=== PATIENT | male | born 1965 | race Caucasian/White ===

== ENCOUNTER 2020-07-26 20:40 | Inpatient (IN) ==
[2020-07-26] MEDS ORDERED: KETOROLAC TROMETHAMINE 15 MG/ML VIAL IV STA (21:52)
[2020-07-26] MEDS ORDERED: SODIUM CHLORIDE 0.9% 1000ML 2,000 ML IV ONE (21:52)
[2020-07-26] MEDS ORDERED: dexAMETHasone**PF** 10 MG/ML VIAL IV ONE (21:52)
[2020-07-26] MEDS ORDERED: guaiFENesin 600 MG TABCR PO STA (21:52)
[2020-07-26] MEDS ORDERED: ACETAMINOPHEN 1,000 MG/100 ML VIAL IV STA (21:52)
[2020-07-26] MEDS ORDERED: IPRATROPIUM BROMIDE/ALBUTEROL respimat INH INH STA (21:54)
[2020-07-26 22:47] LABS: Hematocrit (blood only) 40.2 % (42-52); Hemoglobin 14.3 g/dL (14.0-18.0); Lymphocytes # (auto) 0.72 K/uL (1.2-3.4); Lymphocytes % (auto) 8.8 %; Mean Corpuscular Hemoglobin 30.3 pg (25-34); Mean Corpuscular Hgb Conc 35.6 g/dL (32-36); Mean Corpuscular Volume 85.2 fL (80-100); Mean Platelet Volume 11.1 fL (7.4-10.4); Monocytes % (auto) 8.5 %; Neutrophils # (auto) 6.77 K/uL (1.4-6.5); Neutrophils % (auto) 82.7 %; Platelet Count 155 K/uL (130-400); RDW Coefficient of Variation 13.2 % (11.5-14.5); RDW Standard Deviation 41.6 fL (36.4-46.3); Red Blood Count 4.72 M/uL (4.7-6.1); White Blood Count 8.19 K/uL (4.8-10.8)
[2020-07-26 23:02] LABS: D Dimer 770 ug/L FEU (0-500)
[2020-07-26 23:10] LABS: Alanine Aminotransferase 31 U/L (12-78); Albumin Globulin Ratio 0.9 (0.9-2); Albumin Level 2.9 gm/dl (3.4-5.0); Alkaline Phosphatase 86 U/L (45-117); Aspartate Aminotransferase 32 U/L (15-37); BUN Creatinine Ratio 16.4 (10-20); Bilirubin,Total 0.5 mg/dl (0.2-1); Blood Urea Nitrogen 16 mg/dl (7-18); Calcium 8.1 mg/dl (8.5-10.1); Carbon Dioxide 25 mmol/L (21-32); Chloride 107 mmol/L (98-107); Creatinine Clr Calc Pharmacy 93.8 ml/min; Est GFR (African American) 106.9; Est GFR (Non-African American) 92.2; Globulin 3.2 gm/dl (2.5-4.0); Glucose 110 mg/dl (70-99); Lipase 123 U/L (73-393); Phosphorus 2.5 mg/dl (2.5-4.9); Potassium 3.9 mmol/L (3.5-5.1); Sodium 138 mmol/L (136-145); Total Protein 6.1 gm/dl (6.4-8.2); Troponin I < 0.015 ng/ml (0-0.045)
[2020-07-26 23:11] LABS: Bilirubin Direct 0.1 mg/dl (0-0.2)
[2020-07-26] MEDS ORDERED: OPTIRAY 350 500ml IV ONE (23:50)
[2020-07-27 00:44] LABS: Influenza A virus by PCR Negative (Neg); Influenza B virus by PCR Negative (Neg); RSV by PCR Negative (Neg)
[2020-07-27 01:09] LABS: SARS CoV2 RNA(COVID-19) InHosp POSITIVE (Negative)
--- NOTE | 2020-07-27 01:22 | History & Physical Report ---
Date of Service July 27, 2020 Assessment & Plan (1) Pneumonia due to COVID-19 virus: 55yo C male presenting with Covid-19 PNA. Symptoms started on 07/17/20, presently on day 10 with persistent fevers, cough and progressive SOB. Labs are significant for lymphopenia, elevated Ddimer. -Admit to medical -Maintain isolation precautions for Covid-19 -Check Procalcitonin, BNP, CK -Dexamethasone 6mg IV daily -Remdesivir per 5 day protocol -Supplemental O2 -Tylenol, Robitussin as needed -Lovenox 40u BID Present on Admission?: Yes (2) Asthma: Chronic. No wheeze -Albuterol HFA PRN SOB or wheeze F/E/N - Heplock. Electrolytes WNL. Check PO4 and replete as needed. Regular diet as tolerated Ppx - Lovenox 40 BID Code - Full per discusison with patient Dispo - Admit to medical Present on Admission?: Yes History of Present Illness Chief Complaint: SOB, Covid-19 Primary Care Provider: Oralia Mukherjee MD Sy Kelly is a 55yo male presenting with Covid-19 pneumonia. Patient developed symptoms of fever, chills, body aches and weakness on 07/17/20. He tested positive for Covid-19 on 07/18/20. Since then he has been persistently febrile with weakness, body aches, as well as diarrhea. He was seen in the ER yesterday with complaint of worsening dyspnea and weakness and poor appetite. He was discharged home with Prednisone 40mg x 5 days. Patient states that he was using his incentive spirometry earlier today when he developed high fever, muscle aches and rigors. This prompted him to come to the ER. He is still with SOB both at rest and with minimal exertion, dry cough, body aches and weakness. Febrile on arrival, saturation of 92% on room air - presently 93% on 2L NC. Saturations dropped to 86% with ambulation to the restroom. ER Course: Tylenol, Albuterol, Dexamethasone, Guaifenesin, Ketorlac, NSS x 2 L Allergies Allergy/AdvReac Type Severity Reaction Status Date / Time Tetanus Vaccines and Toxoid Allergy Intermediate Hives Verified 07/26/20 22:47 Home Medications Medication Instructions Recorded Confirmed Type Collagen Plus Vitamin C 1 cap PO DAILY 01/30/19 07/26/20 History albuterol sulfate [Ventolin HFA] 2 puffs INH Q6H PRN 01/30/19 07/26/20 History cetirizine [Zyrtec] 10 mg PO DAILY 01/30/19 07/26/20 History nzyqf-cs-8-[id number]-zjk-vqdxjsk-ast 1 cap PO DAILY 01/30/19 07/26/20 History [krill oil] Respiratory Health 600 mg PO DAILY 04/13/20 07/26/20 History prednisone 40 mg PO DAILY 5 Days #10 tab 07/25/20 07/26/20 Rx doxycycline hyclate 100 mg PO BID 07/26/20 07/26/20 History zolpidem 10 mg PO HS PRN 07/26/20 07/26/20 History Past Med/Surg History Medical History (Updated 07/27/20 @ 01:21 by Ayla Morin DO) Asthma USED RESCUE INHALER LAST>1 MONTH AGO Seasonal allergies Surgical History History of tonsillectomy History of tooth extraction Family History Grandmother No problems noted. Grandmother (Paternal) Diabetes Denies family history of Ovarian cancer Prostate cancer Myocardial infarction Breast cancer Colorectal cancer Hypertension Stroke Social History (Updated 12/23/18 @ 16:16 by SANGEETA Beverly) Smoking Status: Never smoker Second Hand Exposure: Yes (IN THE PAST); Hx Alcohol Use: Yes Hx Substance Use: No Preferred Language: Turkish Communication Ability: Effective Toe Former Stitchdowns Required: No Beliefs That Will Affect Care: None marital status: Current Living Situation: Spouse current occupational status: employed current occupation: laborer electroplating Feels Safe at Home: Yes caffeine: Yes (coffee) Dental Care, Regularly: No Physical Activity Frequency: 1-2 Times per Week Seatbelt Use: always Sunscreen Use: Yes Assistive Devices: Glasses Review of Systems Review of Systems: All systems reviewed & are unremarkable except as noted in HPI & below Physical Exam Physical Exam: General: patient resting comfortably, NAD, ill in appearance, AA&O x 4 Skin: warm, dry, intact, no rashes or lesions HEENT: NC/AT, PERRL, EOMI, anicteric sclera, conjunctiva without injection, external ear normal to inspection and nontender, nares patent, moist mucus membranes, dentition intact, no oropharyngeal lesions, neck supple, trachea midline, no LAD, no thyromegaly, no JVD Heart: +S1/S2, regular, no m/r/g Lungs: equal air entry bilaterally, no rales/rhonchi Abd: +BS, soft, NT/ND, no masses/organomegaly/ascites Ext: warm, 2+ pulses in UE/LE bilaterally, no clubbing/cyanosis or edema Neuro: nonfocal, patient AA&O x 4, speech intact, no facial droop, moving all extremities on command with equal strength 5/5 Results & Data Results & Data ([facility]) Vital Signs (Past 12 Hours) Vital Signs Temp Pulse Pulse Resp BP Pulse Ox 07/27/20 00:30 75 17 126/64 93 07/27/20 00:00 70 16 127/66 95 07/26/20 23:44 80 21 134/61 94 07/26/20 23:00 82 21 123/58 L 94 07/26/20 22:40 85 22 95 07/26/20 22:21 81 18 125/65 95 07/26/20 21:50 92 07/26/20 20:57 38.7 C H 84 18 140/60 94 Laboratory Results Lab Results 07/26/20 07/26/20 07/26/20 Range/Units 22:21 22:21 22:21 WBC 8.19 (4.8-10.8) K/uL RBC 4.72 (4.7-6.1) M/uL Hgb 14.3 (14.0-18.0) g/dL Hct 40.2 L (42-52) % MCV 85.2 (80-100) fL MCH 30.3 (25-34) pg MCHC 35.6 (32-36) g/dL RDW Std Deviation 41.6 (36.4-46.3) fL RDW Coeff of Aleksander 13.2 (11.5-14.5) % Plt Count 155 (130-400) K/uL MPV 11.1 H (7.4-10.4) fL Immature Gran % (Auto) 0.0 % Neut % (Auto) 82.7 % Lymph % (Auto) 8.8 % [place] % (Auto) 8.5 % Eos % (Auto) 0.0 % Baso % (Auto) 0.0 % Neut # (Auto) 6.77 H (1.4-6.5) K/uL Lymph # (Auto) 0.72 L (1.2-3.4) K/uL [place] # (Auto) 0.70 H (0.11-0.59) K/uL Eos # (Auto) 0.00 (0-0.5) K/uL Baso # (Auto) 0.00 (0-0.2) K/uL Immature Gran # (Auto) 0.00 (0.00-0.02) K/uL D-Dimer 770 H* (0-500) ug/L FEU Sodium 138 (136-145) mmol/L Potassium 3.9 (3.5-5.1) mmol/L Chloride 107 (98-107) mmol/L Carbon Dioxide 25 (21-32) mmol/L Anion Gap 6.0 (3-11) BUN 16 (7-18) mg/dl Creatinine 0.94 (0.6-1.4) mg/dl Est Cr Clr Drug Dosing 93.8 ml/min Est GFR ( Amer) 106.9 Est GFR (Non-Af Amer) 92.2 BUN/Creatinine Ratio 16.4 (10-20) Glucose 110 H (70-99) mg/dl Calcium 8.1 L (8.5-10.1) mg/dl Phosphorus 2.5 (2.5-4.9) mg/dl Magnesium 2.0 (1.8-2.4) mg/dl Total Bilirubin 0.5 (0.2-1) mg/dl Direct Bilirubin 0.1 (0-0.2) mg/dl AST 32 (15-37) U/L ALT 31 (12-78) U/L Alkaline Phosphatase 86 (45-117) U/L Troponin I < 0.015 (0-0.045) ng/ml Total Protein 6.1 L (6.4-8.2) gm/dl Albumin 2.9 L (3.4-5.0) gm/dl Globulin 3.2 (2.5-4.0) gm/dl Albumin/Globulin Ratio 0.9 (0.9-2) Lipase 123 (73-393) U/L Specimen Hemolysis COVID-19 Eval Order SARS-CoV-2 (PCR) (Negative) Influenza Type A (PCR) (Neg) Influenza Type B (PCR) (Neg) RSV (RT-PCR) (Neg) 07/26/20 07/26/20 Range/Units 23:53 23:53 WBC (4.8-10.8) K/uL RBC (4.7-6.1) M/uL Hgb (14.0-18.0) g/dL Hct (42-52) % MCV (80-100) fL MCH (25-34) pg MCHC (32-36) g/dL RDW Std Deviation (36.4-46.3) fL RDW Coeff of Aleksander (11.5-14.5) % Plt Count (130-400) K/uL MPV (7.4-10.4) fL Immature Gran % (Auto) % Neut % (Auto) % Lymph % (Auto) % [place] % (Auto) % Eos % (Auto) % Baso % (Auto) % Neut # (Auto) (1.4-6.5) K/uL Lymph # (Auto) (1.2-3.4) K/uL [place] # (Auto) (0.11-0.59) K/uL Eos # (Auto) (0-0.5) K/uL Baso # (Auto) (0-0.2) K/uL Immature Gran # (Auto) (0.00-0.02) K/uL D-Dimer (0-500) ug/L FEU Sodium (136-145) mmol/L Potassium (3.5-5.1) mmol/L Chloride (98-107) mmol/L Carbon Dioxide (21-32) mmol/L Anion Gap (3-11) BUN (7-18) mg/dl Creatinine (0.6-1.4) mg/dl Est Cr Clr Drug Dosing ml/min Est GFR ( Amer) Est GFR (Non-Af Amer) BUN/Creatinine Ratio (10-20) Glucose (70-99) mg/dl Calcium (8.5-10.1) mg/dl Phosphorus (2.5-4.9) mg/dl Magnesium (1.8-2.4) mg/dl Total Bilirubin (0.2-1) mg/dl Direct Bilirubin (0-0.2) mg/dl AST (15-37) U/L ALT (12-78) U/L Alkaline Phosphatase (45-117) U/L Troponin I (0-0.045) ng/ml Total Protein (6.4-8.2) gm/dl Albumin (3.4-5.0) gm/dl Globulin (2.5-4.0) gm/dl Albumin/Globulin Ratio (0.9-2) Lipase (73-393) U/L Specimen Hemolysis COVID-19 Eval Order CovFluRsv at [facility] SARS-CoV-2 (PCR) POSITIVE A* (Negative) Influenza Type A (PCR) Negative (Neg) Influenza Type B (PCR) Negative (Neg) RSV (RT-PCR) Negative (Neg) Diagnostic Findings CTA suggesetive of inflammatory/infectious process. No PE Code Status & VTE Plan VTE Prophylaxis Plan VTE Prophylaxis will be ordered: Yes PG Care Time/CCT Total # of Minutes Spent Total Time Spent with Patient: Total time spent is greater than 50% in coordination of care (as documented) at patient's floor/unit and/or counseling patient: Coding Level of Care Code 26991 Initial Inpt Care Lvl 2 Diagnoses Pneumonia due to COVID-19 virus U07.1; J12.82 Asthma J45.909 Asthma severity: unspecified severity Asthma persistence: unspecified Asthma complication type: unspecified (1) Asthma Asthma severity: unspecified severity Asthma persistence: unspecified Asthma complication type: unspecified Qualified Code(s): J45.909 - Unspecified asthma, uncomplicated
[2020-07-27] MEDS ORDERED: AZITHROMYCIN 500 MG in DEXTROSE 5% 250 ML IV STA (02:10)
[2020-07-27] MEDS ORDERED: ONDANSETRON INJ 2 MG/ML 2 ML VIAL IV PRN (02:10)
[2020-07-27] MEDS ORDERED: guaiFENesin SUGAR FREE 100 MG/5 ML UDC PO PRN (02:10)
[2020-07-27] MEDS ORDERED: ACETAMINOPHEN 325 MG TAB PO PRN (02:10)
[2020-07-27] MEDS ORDERED: ALBUTEROL HFA 8 GM INHALER INH PRN (02:10)
--- NOTE | 2020-07-27 02:20 | Emergency Department Note ---
Impression & Plan Pneumonia due to COVID-19 virus, Hypoxia, D-dimer, elevated ED Provider Note NAME: SHANNON SMITH AGE: 55 SEX: M ARRIVES VIA: Walk-In INFORMANT: Patient, ED PROVIDER(S): Christopher Kulkarni MD CHIEF COMPLAINT: Shortness of breath, Covid-19 PLAN: Disposition: Admit MEDICAL DECISION MAKING: The patient is a pleasant 55-year-old gentleman who presents to the emergency department for evaluation of worsening body aches, feverishness cough, congestion and shortness of breath in setting of being diagnosed with COVID-19 with symptoms that evolved over the past week in the setting of his also being symptomatic and confirmed to be Covid positive, seen in the emergency department yesterday found a multifocal pneumonia related to COVID-19 but was considered to be clinically stable for outpatient follow-up. He was treated with steroids due to component of wheezing on exam and provided with inhaler and incentive spirometer. While reporting initial improvement this morning felt abrupt decline this afternoon/evening and now presents for further evaluation. On arrival patient is dyspneic appearing, uncomfortable but no acute distress, febrile to 38.7 with O2 saturation down to 92% on room air with mild dyspnea and so was placed on 2 L nasal cannula with improvement to mid 90s. On exam he appears clinically dry. He has scant intermittent wheeze and is diminished at the bases. EKG without overt acute ischemia. Chest x-ray with persistent bilateral multifocal infiltrates per my preliminary review. WBC, hemoglobin and platelets within normal limits. Chemistry without metabolic acidosis. Electrolytes and LFTs unremarkable. Troponin negative/undetectable. D-dimer was slightly elevated at [address] of the chest was performed and was negative for PE and redemonstrates patchy airspace opacities consistent with COVID-19 pneumonia. Treatment was initiated with IV fluid hydration, dexamethasone, Com bivent, apap. Given the patient's worsening symptoms he is agreeable with plan for admission. Case was discussed with Dr. Morin, [facility] [place], who will evaluate the patient for admission. Triage Nursing notes reviewed and agree them. Prior medical records reviewed Vital Signs: reviewed and remarkable for hypoxia. Differential diagnosis: Reactive airway disease, pneumonia, pneumothorax, COPD, CHF, infections, cardiac ischemia, pulmonary embolism, musculoskeletal, gastrointestinal, as well as other pathologies. ER treatment provided: See below. Diagnostics interpreted by me: ECG: Normal sinus rhythm, 85 bpm, no ectopy, no overt ST elevation or depression, QTC 423, QRS 84. Cardiac Monitoring: An order for continuous cardiac monitoring was placed and demonstrated Normal sinus rhythm, 85 bpm, no ectopy Laboratory studies: See below Imaging studies: CXR: Bilateral multifocal infiltrates per my preliminary review. [facility] Preliminary Findings Only See Final Report For Complete Findings CTA CHEST: No PE No aortic dissection or aneurysm. Patchy areas of airspace disease/groundglass opacities bilaterally. Likely represents infectious/inflammatory process including Covid 19. Small and mildly enlarged mediastinal nodes. Small bilateral hilar nodes. Small subcentimeter liver low-density lesion in the left hepatic lobe. Too small to characterize. Radiologist: Glenys Garcia M.D. Study ready at 23:52 and initial results transmitted at 00:05 Consultation(s): Case was discussed with Dr. Morin, [facility] hospitalist, who will evaluate the patient for admission. HPI: The patient is a pleasant 55-year-old gentleman who presents to the emergency department for evaluation of worsening body aches, feverishness cough, congestion and shortness of breath in setting of being diagnosed with COVID-19 with symptoms that evolved over the past week in the setting of his also being symptomatic and confirmed to be Covid positive, seen in the emergency department yesterday found a multifocal pneumonia related to COVID-19 but was considered to be clinically stable for outpatient follow-up. He was treated with steroids due to component of wheezing on exam and provided with inhaler and incentive spirometer. While reporting initial improvement this morning felt abrupt decline this afternoon/evening and now presents for further evaluation. ROS: See above HPI for pertinent positives & negatives. A total of 10 systems reviewed and were otherwise negative. PAST MEDICAL HISTORY:See Below PAST SURGICAL HISTORY:See Below FAMILY HISTORY:See Below SOCIAL HISTORY:See Below HOME MEDICATIONS:See Below ALLERGIES:See Below VITALS:See Below PHYSICAL EXAMINATION: GENERAL: Awake, alert, uncomfortable-appearing, in no distress HENT: Normocephalic, atraumatic. Oropharynx with dry mucous membranes and otherwise unremarkable. EYES: Normal conjunctiva. Sclera non-icteric. NECK: Supple. No nuchal rigidity. FROM. No JVD. RESPIRATORY: Scant intermittent wheezes and diminished at the bases. Mildly dyspneic without significant work of breathing. CARDIAC: Regular rate, normal rhythm. Extremities warm and well perfused. Pulses equal. ABDOMEN: Soft, non-distended. No tenderness to palpation. No rebound or guarding. No masses. RECTAL: Deferred. MUSCULOSKELETAL: Chest examination reveals no tenderness. The back is symmetri kermit on inspection without obvious abnormality. There is no CVA tenderness to palpation. No joint edema. LOWER EXTREMITIES: Calves are equal size bilaterally and non-tender. No edema. No discoloration. NEURO: Normal sensorium. No sensory or motor deficits noted. SKIN: No rash or jaundice noted. Christopher Kulkarni MD Past Med/Surg History Medical History Asthma USED RESCUE INHALER LAST>1 MONTH AGO Seasonal allergies Surgical History History of tonsillectomy History of tooth extraction Family History Grandmother No problems noted. Grandmother (Paternal) Diabetes Denies family history of Ovarian cancer Prostate cancer Myocardial infarction Breast cancer Colorectal cancer Hypertension Stroke Social History Smoking Status: Never smoker Second Hand Exposure: Yes; Hx Alcohol Use: No Hx Substance Use: No Preferred Language: Japanese Communication Ability: Effective Social Services Required: No Beliefs That Will Affect Care: None marital status: Current Living Situation: Spouse current occupational status: employed current occupation: laborer concrete plant Feels Safe at Home: Yes caffeine: Yes (coffee) Dental Care, Regularly: No Physical Activity Frequency: 1-2 Times per Week Seatbelt Use: always Sunscreen Use: Yes Assistive Devices: Glasses Allergies Allergies Allergy/AdvReac Type Severity Reaction Status Date / Time Tetanus Vaccines and Toxoid Allergy Intermediate Hives Verified 07/26/20 22:47 Home Meds Home Medications Medication Instructions Recorded Confirmed Collagen Plus Vitamin C 1 cap PO DAILY 01/30/19 07/26/20 albuterol sulfate [Ventolin HFA] 2 puffs INH Q6H PRN 01/30/19 07/26/20 cetirizine [Zyrtec] 10 mg PO DAILY 01/30/19 07/26/20 lslkr-fe-3-aaf-ith-qapatao-ast 1 cap PO DAILY 01/30/19 07/26/20 [krill oil] Respiratory Health 600 mg PO DAILY 04/13/20 07/26/20 doxycycline hyclate 100 mg PO BID 07/26/20 07/26/20 zolpidem 10 mg PO HS PRN 07/26/20 07/26/20 Previous Rx's Medication Instructions Recorded prednisone 40 mg PO DAILY 5 Days #10 tab 07/25/20 Results & Data (ED) Vital Signs Vital Signs - 24 hr 07/26/20 20:57 07/26/20 21:01 07/26/20 21:50 Temperature 38.7 C H Temperature Source Oral Pulse Rate 84 Pulse Rate [Apical] Pulse Rate from SpO2 Sensor Pulse Rhythm [Apical] Respiratory Rate 18 Respiratory Effort / Characteristics Short of Breath SOB on Exertion Respiratory Depth Normal Blood Pressure 140/60 Blood Pressure Mean 86 Pulse Oximetry 94 92 Oxygen Delivery Method Room Air Room Air Oxygen Flow Rate Sepsis Recent Fever Within 48 Hours No Sepsis New/Unexplained Change in Mental Status N/A Sepsis Action Taken by Nursing No Action Required Oxygen Flow Rate - Titration Pulse Oximetry Post Tiitration 07/26/20 22:21 07/26/20 22:40 07/26/20 23:00 Temperature Temperature Source Pulse Rate 81 82 Pulse Rate [Apical] 85 Pulse Rate from SpO2 Sensor 82 82 Pulse Rhythm [Apical] Regular Respiratory Rate 18 22 21 Respiratory Effort / Characteristics Non-Labored Spontaneous Respiratory Depth Normal Blood Pressure 125/65 123/58 L Blood Pressure Mean 85 79 Pulse Oximetry 95 95 94 Oxygen Delivery Method Nasal Cannula Nasal Cannula Nasal Cannula Oxygen Flow Rate 2 2 2 Sepsis Recent Fever Within 48 Hours Sepsis New/Unexplained Change in Mental Status Sepsis Action Taken by Nursing Oxygen Flow Rate - Titration 2 Pulse Oximetry Post Tiitration 95 07/26/20 23:44 07/27/20 00:00 07/27/20 00:30 Temperature Temperature Source Pulse Rate 80 70 75 Pulse Rate [Apical] Pulse Rate from SpO2 Sensor 80 70 75 Pulse Rhythm [Apical] Respiratory Rate 21 16 17 Respiratory Effort / Characteristics Respiratory Depth Blood Pressure 134/61 127/66 126/64 Blood Pressure Mean 85 86 84 Pulse Oximetry 94 95 93 Oxygen Delivery Method Room Air Nasal Cannula Nasal Cannula Oxygen Flow Rate 2 2 Sepsis Recent Fever Within 48 Hours Sepsis New/Unexplained Change in Mental Status Sepsis Action Taken by Nursing Oxygen Flow Rate - Titration Pulse Oximetry Post Tiitration 07/27/20 01:00 Temperature Temperature Source Pulse Rate 71 Pulse Rate [Apical] Pulse Rate from SpO2 Sensor 70 Pulse Rhythm [Apical] Respiratory Rate 16 Respiratory Effort / Characteristics Respiratory Depth Blood Pressure 122/69 Blood Pressure Mean 86 Pulse Oximetry 93 Oxygen Delivery Method Nasal Cannula Oxygen Flow Rate 2 Sepsis Recent Fever Within 48 Hours Sepsis New/Unexplained Change in Mental Status Sepsis Action Taken by Nursing Oxygen Flow Rate - Titration Pulse Oximetry Post Tiitration Laboratory Data Attestation: I reviewed the patient's lab results. Result diagrams: 07/26/20 22:07/26/20 22: Lab Results 07/26/20 07/26/20 07/26/20 Range/Units : 22: 22: WBC 8.19 (4.8-10.8) K/uL RBC 4.72 (4.7-6.1) M/uL Hgb 14.3 (14.0-18.0) g/dL Hct 40.2 L (42-52) % MCV 85.2 (80-100) fL MCH 30.3 (25-34) pg MCHC 35.6 (32-36) g/dL RDW Std Deviation 41.6 (36.4-46.3) fL RDW Coeff of Aleksander 13.2 (11.5-14.5) % Plt Count 155 (130-400) K/uL MPV 11.1 H (7.4-10.4) fL Immature Gran % (Auto) 0.0 % Neut % (Auto) 82.7 % Lymph % (Auto) 8.8 % [place] % (Auto) 8.5 % Eos % (Auto) 0.0 % Baso % (Auto) 0.0 % Neut # (Auto) 6.77 H (1.4-6.5) K/uL Lymph # (Auto) 0.72 L (1.2-3.4) K/uL [place] # (Auto) 0.70 H (0.11-0.59) K/uL Eos # (Auto) 0.00 (0-0.5) K/uL Baso # (Auto) 0.00 (0-0.2) K/uL Immature Gran # (Auto) 0.00 (0.00-0.02) K/uL D-Dimer 770 H* (0-500) ug/L FEU Sodium 138 (136-145) mmol/L Potassium 3.9 (3.5-5.1) mmol/L Chloride 107 (98-107) mmol/L Carbon Dioxide 25 (21-32) mmol/L Anion Gap 6.0 (3-11) BUN 16 (7-18) mg/dl Creatinine 0.94 (0.6-1.4) mg/dl Est Cr Clr Drug Dosing 93.8 ml/min Est GFR ( Amer) 106.9 Est GFR (Non-Af Amer) 92.2 BUN/Creatinine Ratio 16.4 (10-20) Glucose 110 H (70-99) mg/dl Calcium 8.1 L (8.5-10.1) mg/dl Phosphorus 2.5 (2.5-4.9) mg/dl Magnesium 2.0 (1.8-2.4) mg/dl Total Bilirubin 0.5 (0.2-1) mg/dl Direct Bilirubin 0.1 (0-0.2) mg/dl AST 32 (15-37) U/L ALT 31 (12-78) U/L Alkaline Phosphatase 86 (45-117) U/L Total Creatine Kinase 235 (39-308) U/L Troponin I < 0.015 (0-0.045) ng/ml NT-Pro-B Natriuret Pep 353 (0-900) pg/ml Total Protein 6.1 L (6.4-8.2) gm/dl Albumin 2.9 L (3.4-5.0) gm/dl Globulin 3.2 (2.5-4.0) gm/dl Albumin/Globulin Ratio 0.9 (0.9-2) Lipase 123 (73-393) U/L Specimen Hemolysis COVID-19 Eval Order SARS-CoV-2 (PCR) (Negative) Influenza Type A (PCR) (Neg) Influenza Type B (PCR) (Neg) RSV (RT-PCR) (Neg) 07/26/20 07/26/20 Range/Units 23:53 23:53 WBC (4.8-10.8) K/uL RBC (4.7-6.1) M/uL Hgb (14.0-18.0) g/dL Hct (42-52) % MCV (80-100) fL MCH (25-34) pg MCHC (32-36) g/dL RDW Std Deviation (36.4-46.3) fL RDW Coeff of Aleksander (11.5-14.5) % Plt Count (130-400) K/uL MPV (7.4-10.4) fL Immature Gran % (Auto) % Neut % (Auto) % Lymph % (Auto) % [place] % (Auto) % Eos % (Auto) % Baso % (Auto) % Neut # (Auto) (1.4-6.5) K/uL Lymph # (Auto) (1.2-3.4) K/uL [place] # (Auto) (0.11-0.59) K/uL Eos # (Auto) (0-0.5) K/uL Baso # (Auto) (0-0.2) K/uL Immature Gran # (Auto) (0.00-0.02) K/uL D-Dimer (0-500) ug/L FEU Sodium (136-145) mmol/L Potassium (3.5-5.1) mmol/L Chloride (98-107) mmol/L Carbon Dioxide (21-32) mmol/L Anion Gap (3-11) BUN (7-18) mg/dl Creatinine (0.6-1.4) mg/dl Est Cr Clr Drug Dosing ml/min Est GFR ( Amer) Est GFR (Non-Af Amer) BUN/Creatinine Ratio (10-20) Glucose (70-99) mg/dl Calcium (8.5-10.1) mg/dl Phosphorus (2.5-4.9) mg/dl Magnesium (1.8-2.4) mg/dl Total Bilirubin (0.2-1) mg/dl Direct Bilirubin (0-0.2) mg/dl AST (15-37) U/L ALT (12-78) U/L Alkaline Phosphatase (45-117) U/L Total Creatine Kinase (39-308) U/L Troponin I (0-0.045) ng/ml NT-Pro-B Natriuret Pep (0-900) pg/ml Total Protein (6.4-8.2) gm/dl Albumin (3.4-5.0) gm/dl Globulin (2.5-4.0) gm/dl Albumin/Globulin Ratio (0.9-2) Lipase (73-393) U/L Specimen Hemolysis COVID-19 Eval Order CovFluRsv at [facility] SARS-CoV-2 (PCR) POSITIVE A* (Negative) Influenza Type A (PCR) Negative (Neg) Influenza Type B (PCR) Negative (Neg) RSV (RT-PCR) Negative (Neg) Administered Medications Discontinued Medications Albuterol (Ipratropium [place]/Albuterol Respimat Inh) 2 puffs INH NOW STA Stop: 07/26/20 21:55 Last Admin: 07/26/20 22:29 Dose: 2 puffs Documented by: [id number] Dexamethasone Sodium Phosphate (DexamethasonePf 10 Mg/Ml Vial) 10 mg IV NOW ONE Stop: 07/26/20 21:53 Last Admin: 07/26/20 22:29 Dose: 10 mg Documented by: [id number] Guaifenesin (Guaifenesin 600 Mg Tabcr) 600 mg PO NOW STA Stop: 07/26/20 21:53 Last Admin: 07/26/20 22:29 Dose: 600 mg Documented by: [id number] Acetaminophen (Ofirmev) 1,000 mg in 100 mls @ 400 mls/hr IV NOW STA Stop: 07/26/20 22:06 Last Infusion: 07/26/20 22:53 Dose: 0 mls/hr Documented by: [id number] Admin: 07/26/20 22:28 Dose: 400 mls/hr Documented by: [id number] Sodium Chloride (Nss 1000ml) 2,000 mls @ 999 mls/hr IV .Q2H1M ONE Stop: 07/26/20 23:52 Last Infusion: 07/27/20 00:28 Dose: 0 mls/hr Documented by: [id number] Admin: 07/26/20 22:27 Dose: 999 mls/hr Documented by: [id number] Remdesivir 200 mg/ Sodium (Chloride) 250 mls @ 125 mls/hr IV ONE STA; Protocol Stop: 07/27/20 04:25 Last Admin: 07/27/20 03:52 Dose: 125 mls/hr Documented by: [id number] Ioversol (Optiray 350 500ml) 125 ml IV ONCE ONE Stop: 07/26/20 23:51 Last Admin: 07/26/20 23:50 Dose: 94 ml Documented by: [id number] Ketorolac Tromethamine (Ketorolac Tromethamine 15 Mg/Ml Vial) 15 mg IV NOW STA Stop: 07/26/20 21:53 Last Admin: 07/26/20 22:29 Dose: 15 mg Documented by: [id number] Discharge Plan Visit Data Chief Complaint: Cardiac Assessment Stated Complaint: CHEST PRESSURE/TIGHTNESS, Hx OF COVID ED Provider: Christopher Kulkarni Discharge Problem: Pneumonia due to COVID-19 virus, Hypoxia, D-dimer, elevated Patient Disposition: Admitted As Inpatient Discharge Instructions Interventions: ED Discharge Assessment Last Done: 07/27/20 01:41
[2020-07-27] MEDS ORDERED: REMDESIVIR 200 MG in SODIUM CHLORIDE 0.9% 210 ML IV STA (02:26)
[2020-07-27 02:50] LABS: Creatine Kinase 235 U/L (39-308); NT Pro B Type Natriuretic Pept 353 pg/ml (0-900)
[2020-07-27] MEDS: SODIUM CHLORIDE 0.9% 10ML FLUSH IV SCH ×2 (05:59→22:02)
--- NOTE | 2020-07-27 07:27 | XRay Report ---
XR chest 1V portable CLINICAL HISTORY: Chest Pain COMPARISON STUDY: Chest radiograph July 25, 2020. FINDINGS: Lung volumes are normal. There is no pneumothorax or pleural effusion. There has been progr ession of moderate multifocal bilateral airspace opacities since exam of July 25, 2020. Cardiac size is normal. Mediastinal contours are normal. There is bilateral hilar prominence which may be due to lymphadenopathy. IMPRESSION: Progression of moderate bilateral airspace opacities consistent with viral pneumonia. ACT 112: Negative or not required by law. Electronically signed by: Raghavendra Brown M.D. 07/27/2020 7:25 AM
--- NOTE | 2020-07-27 07:36 | CT Scan Report ---
CT ANGIOGRAM OF THE CHEST CLINICAL HISTORY: Pleuritic chest pain. Hypoxia. Covid. COMPARISON STUDY: Chest x-ray dated 07/26/2020. TECHNIQUE: Following the IV administration of 94 cc of Optiray 350, CT angiogram of the chest was per formed from the upper abdomen to the thoracic inlet utilizing the pulmonary embolus protocol. Images are reviewed in the axial, sagittal, and coronal planes. 3-D MIPS images are created and assessed. IV contrast was administered without complication. A dose lowering technique was utilized adhering to the principles of ALARA. CT DOSE: 437.45 mGy.cm FINDINGS: Thyroid: Imaged portions of the thyroid gland are normal in size and attenuation. Thoracic aorta: The thoracic aorta is normal in caliber and demonstrates standard 3-vessel arch anato my. No dissection is seen. Pulmonary vasculature: The pulmonary trunk is normal in caliber. There are no filling defects identif ied in main, lobar, or segmental pulmonary branches to suggest pulmonary embolus. Heart: The heart is normal in size and without pericardial effusion. Lungs and pleural spaces: There is multifocal airspace consolidation seen throughout both lungs. Trac e pleural effusions are noted. The trachea and central airways are clear. Mediastinum: There are numerous enlarged mediastinal lymph nodes. An AP window node measures 1.6 cm i n short axis. Prevascular nodes measure up to 9 mm in short axis. [place]za: There are enlarged bilateral hilar lymph nodes measuring up to 1.2 cm in short axis. Axillae: There is no axillary lymphadenopathy. Upper abdomen: Partially visualized upper abdominal viscera is within normal limits. Skeletal structures: No lytic or blastic bony lesions are seen. IMPRESSION: 1. There is no evidence of pulmonary embolus in the main, lobar, or segmental pulmonary arteries. 2. Multifocal airspace consolidation is consistent with the reported history of a viral pneumonia. Ra diographic follow-up to resolution is recommended. 3. Trace pleural effusions. 4. Mildly enlarged mediastinal and hilar lymph nodes are likely reactive. ACT 112: Negative or not required by law. Electronically signed by: Oj Way M.D. 07/27/2020 7:34 AM
[2020-07-27] MEDS: ENOXAPARIN INJ 40 MG/0.4 ML SYR SQ SCH ×2 (08:42→20:49)
[2020-07-27] MEDS: dexAMETHasone 6 MG in SYRINGE 0 ML IV SCH (08:42)
[2020-07-27] MEDS: CETIRIZINE HCL 10 MG TABLET PO SCH (08:43)
[2020-07-27] MEDS: cefTRIAXone SODIUM 2,000 MG in DEXTROSE 5% 50 ML IV SCH (09:53)
--- NOTE | 2020-07-27 14:08 | Hospitalist Progress Note ---
Date of Service July 27, 2020 Assessment & Plan (1) Pneumonia due to COVID-19 virus: Severe disease. With resulting acute hypoxic resp failure. Day #2 of 10 of IV decadron 6mg daily. Dose #2 of 5 of remdesivir. Defer on convalescent plasma as he is about 10 days into his illness. Proning demonstrated and encouraged; handout given. Flutter valve, incentive. Mucinex. Albuterol prn. CTA w/o PE at admission. (2) Asthma: No significant wheezing/bronchospasm on exam today. Cont albuterol prn. (3) Acute respiratory failure with hypoxia: 2nd COVID-19 pneumonia. NC O2 support. See above. (4) D-dimer, elevated: 2nd COVID-19. No PE on CTA chest yesterday. (5) DVT prophylaxis: Due to higher risk of VTE will use lovenox 40mg BID. Also add low-dose asa 81mg daily as recent studies show decrease in COVID complications by using such. updated extensively by phone. total time today between bedside visit and updating - 35 min Admission and Anticipated Discharge Date Admission Date: July 27, 2020 Subjective patient very fatigued, ongoing dry cough, ongoing dyspnea with minimal exertion. just simply feels poorly. appetite poor. fever and chills last night. no loss of taste/smell. ill with COVID but not as severely as him. denies chest pain although he has some occasional chest tightness. has not proned yet. Review of Systems Constitutional: + fever, + chills, + fatigue, + malaise, + weakness and + anorexia; no body aches Ear, Nose, Mouth, Throat: no nasal congestion Respiratory: + cough, + dyspnea and + dyspnea on exertion; no wheezing Cardiovascular: no chest pain and no orthopnea Gastrointestinal: + diarrhea/loose stools; no abdominal pain Physical Exam Constitutional: + ill appearing; no acute distress and no altered mental status ENMT: external ear and nose normal, oropharynx normal Respiratory: no respiratory distress Auscultation: + crackles (extensive - b/l ); no wheezes Cardiovascular: Rate/Rhythm: regular rate and regular rhythm Heart Sounds: normal S1 and normal S2; no murmur Vessels: posterior tibial pulses present and dorsalis pedis pulses present; no JVD Extremities: no edema Gastrointestinal (Abdomen): normal bowel sounds, soft, nontender, no hepatosp lenomegaly Skin: no rashes, warm and dry Psychiatric: Orientation: alert and oriented x 3 Results & Data Results & Data ([facility]) Vital Signs (Past 12 Hours) Vital Signs Temp Pulse Resp BP Pulse Ox 07/27/20 07:59 36.8 C 71 18 120/72 93 Laboratory Results Laboratory Results - last 24 hr 07/26/20 07/26/20 07/26/20 22:21 22:21 22:21 WBC 8.19 RBC 4.72 Hgb 14.3 Hct 40.2 L MCV 85.2 MCH 30.3 MCHC 35.6 RDW Std Deviation 41.6 RDW Coeff of Aleksander 13.2 Plt Count 155 MPV 11.1 H Immature Gran % (Auto) 0.0 Neut % (Auto) 82.7 Lymph % (Auto) 8.8 [place] % (Auto) 8.5 Eos % (Auto) 0.0 Baso % (Auto) 0.0 Neut # (Auto) 6.77 H Lymph # (Auto) 0.72 L [place] # (Auto) 0.70 H Eos # (Auto) 0.00 Baso # (Auto) 0.00 Immature Gran # (Auto) 0.00 D-Dimer 770 H* Sodium 138 Potassium 3.9 Chloride 107 Carbon Dioxide 25 Anion Gap 6.0 BUN 16 Creatinine 0.94 Est Cr Clr Drug Dosing 93.8 Est GFR ( Amer) 106.9 Est GFR (Non-Af Amer) 92.2 BUN/Creatinine Ratio 16.4 Glucose 110 H Calcium 8.1 L Phosphorus 2.5 Magnesium 2.0 Total Bilirubin 0.5 Direct Bilirubin 0.1 AST 32 ALT 31 Alkaline Phosphatase 86 Total Creatine Kinase 235 Troponin I < 0.015 NT-Pro-B Natriuret Pep 353 Total Protein 6.1 L Albumin 2.9 L Globulin 3.2 Albumin/Globulin Ratio 0.9 Lipase 123 Procalcitonin Specimen Hemolysis COVID-19 Eval Order SARS-CoV-2 (PCR) Influenza Type A (PCR) Influenza Type B (PCR) RSV (RT-PCR) 07/26/20 07/26/20 07/27/20 23:53 23:53 06:49 WBC RBC Hgb Hct MCV MCH MCHC RDW Std Deviation RDW Coeff of Aleksander Plt Count MPV Immature Gran % (Auto) Neut % (Auto) Lymph % (Auto) [place] % (Auto) Eos % (Auto) Baso % (Auto) Neut # (Auto) Lymph # (Auto) [place] # (Auto) Eos # (Auto) Baso # (Auto) Immature Gran # (Auto) D-Dimer Sodium Potassium Chloride Carbon Dioxide Anion Gap BUN Creatinine Est Cr Clr Drug Dosing Est GFR ( Amer) Est GFR (Non-Af Amer) BUN/Creatinine Ratio Glucose Calcium Phosphorus Magnesium Total Bilirubin Direct Bilirubin AST ALT Alkaline Phosphatase Total Creatine Kinase Troponin I NT-Pro-B Natriuret Pep Total Protein Albumin Globulin Albumin/Globulin Ratio Lipase Procalcitonin 0.44 Specimen Hemolysis COVID-19 Eval Order CovFluRsv at [facility] SARS-CoV-2 (PCR) POSITIVE A* Influenza Type A (PCR) Negative Influenza Type B (PCR) Negative RSV (RT-PCR) Negative PG Care Time/CCT Total # of Minutes Spent Total Time Spent with Patient: Total time spent is greater than 50% in coordination of care (as documented) at patient's floor/unit and/or counseling patient: Coding Level of Care Code 55097 Subseq Hosp Care Lvl 3 Diagnoses Pneumonia due to COVID-19 virus U07.1; J12.82 Asthma J45.909 Asthma complication type: unspecified Asthma persistence: unspecified Asthma severity: unspecified severity Acute respiratory failure with hypoxia J96.01 D-dimer, elevated R79.89 DVT prophylaxis Z29.9 (1) Asthma Asthma complication type: unspecified Asthma persistence: unspecified Asthma severity: unspecified severity Qualified Code(s): J45.909 - Unspecified asthma, uncomplicated
--- NOTE | 2020-07-27 14:34 | Electrocardiogram Report ---
Test Reason : Blood Pressure : / mmHG Vent. Rate : 085 BPM Atrial Rate : 085 BPM P-R Int : 138 ms QRS Dur : 084 ms QT Int : 364 ms P-R-T Axes : 039 -15 -12 degrees QTc Int : 433 ms Normal sinus rhythm Normal ECG When compared with ECG of 25-JUL-2020 13:00, No significant change was found Confirmed by Colt Crowe ([id number]) on 07/27/2020 2:33:43 PM Referred By: REFERRED SELF Confirmed By:Liuns Crowe
[2020-07-27] MEDS: ASPIRIN 81 MG ECTAB PO SCH (17:58)
[2020-07-27] MEDS: REMDESIVIR 100 MG in SODIUM CHLORIDE 0.9% 230 ML IV SCH (20:49)
[2020-07-28 05:31] LABS: Hematocrit (blood only) 42.7 % (42-52); Hemoglobin 14.6 g/dL (14.0-18.0); Mean Corpuscular Hemoglobin 29.7 pg (25-34); Mean Corpuscular Hgb Conc 34.2 g/dL (32-36); Mean Platelet Volume 10.3 fL (7.4-10.4); Platelet Count 157 K/uL (130-400); RDW Coefficient of Variation 13.4 % (11.5-14.5); RDW Standard Deviation 42.7 fL (36.4-46.3); Red Blood Count 4.91 M/uL (4.7-6.1); White Blood Count 11.01 K/uL (4.8-10.8)
[2020-07-28 05:48] LABS: BUN Creatinine Ratio 15.4 (10-20); Calcium 7.8 mg/dl (8.5-10.1); Creatinine Clr Calc Pharmacy 96.9 ml/min; Est GFR (African American) 111.1; Est GFR (Non-African American) 95.9; Potassium 3.9 mmol/L (3.5-5.1)
[2020-07-28 05:52] LABS: Basophils # (auto) 0.02 K/uL (0-0.2); Basophils % (auto) 0.2 %; Immature Granulocytes # (auto) 0.03 K/uL (0.00-0.02); Immature Granulocytes % (auto) 0.3 %; Lymphocytes # (auto) 0.96 K/uL (1.2-3.4); Lymphocytes % (auto) 8.7 %; Monocytes # (auto) 0.84 K/uL (0.11-0.59); Monocytes % (auto) 7.6 %; Neutrophils # (auto) 9.16 K/uL (1.4-6.5); Neutrophils % (auto) 83.2 %
[2020-07-28] MEDS: cefTRIAXone SODIUM 2,000 MG in DEXTROSE 5% 50 ML IV SCH (06:22)
[2020-07-28] MEDS: AZITHROMYCIN 250 MG in DEXTROSE 5% 250 ML IV SCH (08:22)
[2020-07-28] MEDS: ENOXAPARIN INJ 40 MG/0.4 ML SYR SQ SCH ×2 (08:22→19:53)
[2020-07-28] MEDS: CETIRIZINE HCL 10 MG TABLET PO SCH (08:22)
[2020-07-28] MEDS: dexAMETHasone 6 MG in SYRINGE 0 ML IV SCH (08:22)
[2020-07-28] MEDS: ASPIRIN 81 MG ECTAB PO SCH (08:23)
[2020-07-28] MEDS ORDERED: FAMOTIDINE 20 MG TAB PO ONE (10:00)
[2020-07-28] MEDS ORDERED: guaiFENesin 600 MG TABCR PO ONE (10:00)
[2020-07-28] MEDS: SODIUM CHLORIDE 0.9% 10ML FLUSH IV SCH (19:54)
[2020-07-28] MEDS: REMDESIVIR 100 MG in SODIUM CHLORIDE 0.9% 230 ML IV SCH (19:54)
[2020-07-28] MEDS: guaiFENesin 600 MG TABCR PO SCH (19:55)
[2020-07-28] MEDS: FAMOTIDINE 20 MG TAB PO SCH (19:55)
[2020-07-28] MEDS ORDERED: PRAMIPEXOLE DIHYDROCHLO 0.25 MG TAB PO SCH (21:00)
--- NOTE | 2020-07-28 22:27 | Hospitalist Progress Note ---
Date of Service July 28, 2020 Assessment & Plan (1) Pneumonia due to COVID-19 virus: Severe disease. With resulting acute hypoxic resp failure. Modestly improved today. Day #3 of 10 of IV decadron 6mg daily. Dose #3 of 5 of remdesivir. Convalescent plasma deffered (he was about 10 days into his illness at time of admission). Continue Proning. Continue Flutter valve, incentive. Mucinex. Albuterol prn. CTA w/o PE at admission. (2) Asthma: Again no significant wheezing/bronchospasm on exam today. Cont albuterol prn. (3) Acute respiratory failure with hypoxia: 2nd COVID-19 pneumonia. NC O2 support. See above. (4) D-dimer, elevated: 2nd COVID-19. No PE on CTA chest at admission. Recheck in 2-3 days - sooner if clinical worsening. (5) DVT prophylaxis: Due to higher risk of VTE will use lovenox 40mg BID. Also continue low-dose asa 81mg daily as recent studies show decrease in COVID complications by using such. updated extensively by phone yesterday and today. Admission and Anticipated Discharge Date Admission Date: July 27, 2020 Subjective patient on general scale feeling better today appetite improved being diligent about proning and he notices a big difference can take deeper breaths still coughing but not any worse than previous no fevers/chills using incentive/flutter Review of Systems Constitutional: + fatigue and + weakness; no fever and no chills Ear, Nose, Mouth, Throat: no nasal congestion and no sore throat still no loss of taste or smell Respiratory: + cough and + dyspnea on exertion; no hemoptysis, no sputum production and no wheezing Cardiovascular: no chest pain and no dyspnea at rest Gastrointestinal: no abdominal pain, no nausea and no vomiting Physical Exam Constitutional: no acute distress and no altered mental status looks better today ENMT: external ear and nose normal, oropharynx normal Respiratory: no respiratory distress Auscultation: + diminished lung sounds (bases) and + crackles (b/l bases - improved today; also better airation ); no wheezes Cardiovascular: Rate/Rhythm: regular rate and regular rhythm Heart Sounds: normal S1 and normal S2; no murmur Vessels: posterior tibial pulses present and dorsalis pedis pulses present; no JVD Extremities: no edema Gastrointestinal (Abdomen): normal bowel sounds, soft, nontender, no hepatosplenomegaly Skin: no rashes, warm and dry Psychiatric: Orientation: alert and oriented x 3 Results & Data Results & Data ([facility]) Vital Signs (Past 12 Hours) Vital Signs Temp Pulse Resp BP Pulse Ox 07/28/20 20:57 36.7 C 71 16 118/70 94 07/28/20 15:47 36.8 C 75 17 123/72 93 Laboratory Results Laboratory Results - last 24 hr 07/28/20 07/28/20 05:22 05:22 WBC 11.01 H RBC 4.91 Hgb 14.6 Hct 42.7 MCV 87.0 MCH 29.7 MCHC 34.2 RDW Std Deviation 42.7 RDW Coeff of Aleksander 13.4 Plt Count 157 MPV 10.3 Immature Gran % (Auto) 0.3 Neut % (Auto) 83.2 Lymph % (Auto) 8.7 [place] % (Auto) 7.6 Eos % (Auto) 0.0 Baso % (Auto) 0.2 Neut # (Auto) 9.16 H Lymph # (Auto) 0.96 L [place] # (Auto) 0.84 H Eos # (Auto) 0.00 Baso # (Auto) 0.02 Immature Gran # (Auto) 0.03 H Sodium 141 Potassium 3.9 Chloride 109 H Carbon Dioxide 28 Anion Gap 4.0 BUN 14 Creatinine 0.91 Est Cr Clr Drug Dosing 96.9 Est GFR ( Amer) 111.1 Est GFR (Non-Af Amer) 95.9 BUN/Creatinine Ratio 15.4 Glucose 116 H Calcium 7.8 L AST 28 ALT 33 PG Care Time/CCT Total # of Minutes Spent Total Time Spent with Patient: Total time spent is greater than 50% in coordination of care (as documented) at patient's floor/unit and/or counseling patient: Coding Level of Care Code 70237 Subseq Hosp Care Lvl 2 Diagnoses Pneumonia due to COVID-19 virus U07.1; J12.82 Asthma J45.909 Asthma complication type: unspecified Asthma persistence: unspecified Asthma severity: unspecified severity Acute respiratory failure with hypoxia J96.01 D-dimer, elevated R79.89 DVT prophylaxis Z29.9 (1) Asthma Asthma complication type: unspecified Asthma persistence: unspecified Asthma severity: unspecified severity Qualified Code(s): J45.909 - Unspecified asthma, uncomplicated
[2020-07-29] MEDS: cefTRIAXone SODIUM 2,000 MG in DEXTROSE 5% 50 ML IV SCH (05:13)
[2020-07-29] MEDS: ALBUTEROL HFA 8 GM INHALER INH SCH ×4 (07:19→19:24)
[2020-07-29] MEDS: ENOXAPARIN INJ 40 MG/0.4 ML SYR SQ SCH ×2 (07:29→20:30)
[2020-07-29] MEDS: CETIRIZINE HCL 10 MG TABLET PO SCH (07:32)
[2020-07-29] MEDS: guaiFENesin 600 MG TABCR PO SCH ×2 (07:32→20:31)
[2020-07-29] MEDS: FAMOTIDINE 20 MG TAB PO SCH ×2 (07:32→20:31)
[2020-07-29] MEDS: ASPIRIN 81 MG ECTAB PO SCH (07:32)
[2020-07-29] MEDS: dexAMETHasone 6 MG in SYRINGE 0 ML IV SCH ×2 (07:32→20:32)
[2020-07-29] MEDS: AZITHROMYCIN 250 MG in DEXTROSE 5% 250 ML IV SCH (09:12)
[2020-07-29 09:20] LABS: BUN Creatinine Ratio 20.6 (10-20); Calcium 8.5 mg/dl (8.5-10.1); Creatinine Clr Calc Pharmacy 101.4 ml/min; Est GFR (African American) 114.2; Est GFR (Non-African American) 98.5; Potassium 3.7 mmol/L (3.5-5.1)
--- NOTE | 2020-07-29 15:55 | XRay Report ---
XR chest 1V portable HISTORY: COVID-19, worsening hypoxia COMPARISON: Chest 07/26/2020. FINDINGS: No pneumothorax. No pleural effusions. The heart is normal in size. No evidence for pulmona ry edema. Hazy bilateral mid to lower lung zone airspace opacities are again noted. These are similar to the prior study and are consistent with a viral pneumonia. IMPRESSION: No significant change in the hazy bilateral airspace opacities likely representing a viral pneumonia. ACT 112: Negative or not required by law. Electronically signed by: Hima Navarrete M.D. 07/29/2020 3:54 PM
[2020-07-29] MEDS: DICLOFENAC SOD 1% GEL 100 GM TUBE EXT SCH ×2 (18:00→20:33)
[2020-07-29] MEDS ORDERED: MELATONIN 3 MG TAB PO PRN (19:06)
[2020-07-29] MEDS: PRAMIPEXOLE DIHYDROCHLO 0.5 MG TAB PO SCH (20:31)
[2020-07-29] MEDS: REMDESIVIR 100 MG in SODIUM CHLORIDE 0.9% 230 ML IV SCH (20:32)
[2020-07-29] MEDS: SODIUM CHLORIDE 0.9% 10ML FLUSH IV SCH (21:32)
--- NOTE | 2020-07-29 22:54 | Hospitalist Progress Note ---
Date of Service July 29, 2020 Assessment & Plan (1) Pneumonia due to COVID-19 virus: Severe disease. With resulting acute hypoxic resp failure. Slight worsening in O2 requirement, but on exam he actually has improved airation. CXR today with unchanged infiltrates. Day #4 of 10 of IV decadron. Will increase to 6mg BID due to wheezing (bronchospasm from asthma). Dose #4 of 5 of remdesivir. Convalescent plasma deffered (he was about 10 days into his illness at time of admission). AST/ALT wnl. Continue Proning. Encouraged him to do this as much as possible. Continue Flutter valve; continue incentive. Mucinex. Albuterol qid scheduled. CTA w/o PE at admission. (2) Asthma: Mild wheezing today. In light of worsening O2 requirements will increase decadron to BID dosing. Cont albuterol qid scheduled. Pulmonary toilet. (3) Acute respiratory failure with hypoxia: 2nd COVID-19 pneumonia. 2nd to asthma w/ flare. NC O2 support. See above. (4) D-dimer, elevated: 2nd COVID-19. No PE on CTA chest at admission. Recheck tomorrow am. (5) Restless legs: Increase mirapex to 0.5mg at HS. Consider Fe studies, but ferritin likely to be high from COVID. Defer for now. (6) Insomnia: Multifactorial. Start melatonin 3mg HS. (7) DVT prophylaxis: Due to higher risk of VTE will use lovenox 40mg BID. Also continue low-dose asa 81mg daily as recent studies show decrease in COVID complications by using such. updated extensively by phone yesterday and today. questions answered. low threshold to move to telemetry if any worsening respiratory status. Admission and Anticipated Discharge Date Admission Date: July 27, 2020 Subjective patient states that again he slept very poorly the mirapex helped marginally with restless legs he remains anxious this am upon awakening he was quite dyspneic appetite today very good scant chest discomfort ([place]) with coughing using incentive using flutter proning as much as possible staff report that when he is supine his O2 sats drift to the 80s this prompted O2 via NC being increased to 5 L/min Review of Systems Constitutional: + fatigue and + weakness; no fever and no chills Ear, Nose, Mouth, Throat: no nasal congestion and no sore throat no loss of taste or smell Respiratory: + cough, + dyspnea on exertion, + sputum production (mild - clear) and + wheezing Cardiovascular: as per Subjective / HPI; no edema Gastrointestinal: + diarrhea/loose stools; no abdominal pain, no nausea and no vomiting Physical Exam Constitutional: no acute distress and no altered mental status ENMT: external ear and nose normal, oropharynx normal Respiratory: no respiratory distress Auscultation: + diminished lung sounds (bases - but improved from prior exams), + crackles (b/l bases - MUCH better today ) and + wheezes (mild, end-exp ) Cardiovascular: Rate/Rhythm: regular rate and regular rhythm Heart Sounds: normal S1 and normal S2; no murmur Vessels: posterior tibial pulses present and dorsalis pedis pulses present; no JVD Extremities: no edema Gastrointestinal (Abdomen): normal bowel sounds, soft, nontender, no hepatosplenomegaly Skin: no rashes, warm and dry Psychiatric: Orientation: alert and oriented x 3 Results & Data Results & Data ([facility]) Vital Signs (Past 12 Hours) Vital Signs Pulse Resp Pulse Ox 07/29/20 19:26 79 20 91 07/29/20 16:02 68 95 07/29/20 15:11 82 22 94 07/29/20 11:12 72 18 90 Laboratory Results Laboratory Results - last 24 hr 07/29/20 07:59 Sodium 138 Potassium 3.7 Chloride 106 Carbon Dioxide 26 Anion Gap 7.0 BUN 18 Creatinine 0.87 Est Cr Clr Drug Dosing 101.4 Est GFR ( Amer) 114.2 Est GFR (Non-Af Amer) 98.5 BUN/Creatinine Ratio 20.6 H Glucose 129 H Calcium 8.5 AST 25 ALT 33 Diagnostic Findings Chest X-Ray 07/29/20 15:06 XR chest 1V portable HISTORY: COVID-19, worsening hypoxia COMPARISON: Chest 07/26/2020. FINDINGS: No pneumothorax. No pleural effusions. The heart is normal in size. No evidence for pulmonary edema. Hazy bilateral mid to lower lung zone airspace opacities are again noted. These are similar to the prior study and are consistent with a viral pneumonia. IMPRESSION: No significant change in the hazy bilateral airspace opacities likely representing a viral pneumonia. ACT 112: Negative or not required by law. Electronically signed by: Hima Navarrete M.D. 07/29/2020 3:54 PM PG Care Time/CCT Total # of Minutes Spent Total Time Spent with Patient: Total time spent is greater than 50% in coordination of care (as documented) at patient's floor/unit and/or counseling patient: Coding Level of Care Code 23393 Subseq Hosp Care Lvl 3 Diagnoses Pneumonia due to COVID-19 virus U07.1; J12.82 Asthma J45.909 Asthma severity: unspecified severity Asthma persistence: unspecified Asthma complication type: unspecified Acute respiratory failure with hypoxia J96.01 D-dimer, elevated R79.89 Restless legs G25.81 Insomnia G47.00 DVT prophylaxis Z29.9 (1) Asthma Asthma severity: unspecified severity Asthma persistence: unspecified Asthma complication type: unspecified Qualified Code(s): J45.909 - Unspecified asthma, uncomplicated
[2020-07-30] MEDS: cefTRIAXone SODIUM 2,000 MG in DEXTROSE 5% 50 ML IV SCH (05:47)
[2020-07-30] MEDS: ALBUTEROL HFA 8 GM INHALER INH SCH ×4 (07:29→19:21)
[2020-07-30 07:39] LABS: Hematocrit (blood only) 43.2 % (42-52); Hemoglobin 15.3 g/dL (14.0-18.0); Mean Corpuscular Hgb Conc 35.4 g/dL (32-36); Mean Corpuscular Volume 84.7 fL (80-100); Mean Platelet Volume 10.4 fL (7.4-10.4); Platelet Count 299 K/uL (130-400); RDW Coefficient of Variation 12.9 % (11.5-14.5); RDW Standard Deviation 40.3 fL (36.4-46.3); White Blood Count 8.44 K/uL (4.8-10.8)
[2020-07-30 07:52] LABS: D Dimer 610 ug/L FEU (0-500)
[2020-07-30 08:10] LABS: BUN Creatinine Ratio 19.3 (10-20); Calcium 8.6 mg/dl (8.5-10.1); Est GFR (African American) 112.6; Est GFR (Non-African American) 97.2; Potassium 3.9 mmol/L (3.5-5.1)
[2020-07-30 08:23] LABS: Basophils # (auto) 0.01 K/uL (0-0.2); Basophils % (auto) 0.1 %; Immature Granulocytes # (auto) 0.01 K/uL (0.00-0.02); Immature Granulocytes % (auto) 0.1 %; Lymphocytes # (auto) 0.81 K/uL (1.2-3.4); Lymphocytes % (auto) 9.6 %; Monocytes # (auto) 0.63 K/uL (0.11-0.59); Monocytes % (auto) 7.5 %; Neutrophils # (auto) 6.98 K/uL (1.4-6.5); Neutrophils % (auto) 82.7 %
[2020-07-30] MEDS: dexAMETHasone 6 MG in SYRINGE 0 ML IV SCH ×2 (09:08→19:43)
[2020-07-30] MEDS: ENOXAPARIN INJ 40 MG/0.4 ML SYR SQ SCH ×2 (09:09→19:43)
[2020-07-30] MEDS: FAMOTIDINE 20 MG TAB PO SCH ×2 (09:09→19:43)
[2020-07-30] MEDS: guaiFENesin 600 MG TABCR PO SCH ×2 (09:09→19:43)
[2020-07-30] MEDS: CETIRIZINE HCL 10 MG TABLET PO SCH (09:09)
[2020-07-30] MEDS: ASPIRIN 81 MG ECTAB PO SCH (09:09)
[2020-07-30] MEDS: DICLOFENAC SOD 1% GEL 100 GM TUBE EXT SCH ×4 (09:10→19:44)
[2020-07-30] MEDS: AZITHROMYCIN 250 MG in DEXTROSE 5% 250 ML IV SCH (09:27)
[2020-07-30] MEDS ORDERED: busPIRone 5 MG TAB PO PRN (15:44)
[2020-07-30] MEDS: ADVANCED PROBIOTIC 1250 MG CAPSULE PO SCH (16:12)
--- NOTE | 2020-07-30 18:26 | Hospitalist Progress Note ---
Date of Service July 30, 2020 Assessment & Plan (1) Pneumonia due to COVID-19 virus: Severe disease. With resulting acute hypoxic resp failure. CXR yesterday with unchanged infiltrates. Slow improvement. Day #5 of 10 of IV decadron. Leave steroids at BID dosing today, hopefully wean tomorrow. Dose #5 of 5 of remdesivir. Convalescent plasma deferred (he was about 10 days into his illness at time of admission). AST/ALT wnl. Continue Proning. He has been very diligent about such. Continue Flutter valve; continue incentive. Again very compliant with such. Mucinex. Albuterol qid scheduled. CTA w/o PE at admission. (2) Asthma: with mild exacerbation. cont steroids - no wean today. Cont albuterol qid scheduled. Pulmonary toilet. (3) Acute respiratory failure with hypoxia: 2nd COVID-19 pneumonia. 2nd to asthma w/ flare. NC O2 support. See above. still on 5 L NC O2 - hopefully can start to wean soon. (4) D-dimer, elevated: 2nd COVID-19. No PE on CTA chest at admission. repeat dimer 610 test - minimally elevated & trending down. (5) Restless legs: Cont mirapex 0.5mg at HS. Check Fe studies. (6) Insomnia: Multifactorial. increase melatonin to 6mg HS. (7) Diarrhea: c diff ordered and negative loperamide prn (8) Anxiety: start buspar 5mg tid prn (9) DVT prophylaxis: Due to higher risk of VTE cont lovenox 40mg BID. Also continue low-dose asa 81mg daily as recent studies show decrease in COVID complications by using such. updated extensively by phone yesterday and today. Admission and Anticipated Discharge Date Admission Date: July 27, 2020 Subjective he is feeling much better today more energy better appetite less cough less dyspnea still not sleeping - has not slept in 14+ days restless legs still problematic emotional during visit - tearful; and anxious ongoing diarrhea Review of Systems Constitutional: + increased appetite; no fever, no chills, no body aches and no anorexia Ear, Nose, Mouth, Throat: no nasal congestion and no sore throat Respiratory: + cough and + dyspnea on exertion; no sputum production (Just minimal sputum on occasion) and no wheezing Cardiovascular: no chest pain and no orthopnea Gastrointestinal: no abdominal pain, no nausea and no vomiting Physical Exam Constitutional: no acute distress and no altered mental status ENMT: external ear and nose normal, oropharynx normal Respiratory: no respiratory distress Auscultation: + diminished lung sounds (Marked improvement ) and + crackles (b/l bases - minimal today ); no wheezes (Resolved) Cardiovascular: Rate/Rhythm: regular rate and regular rhythm Heart Sounds: normal S1 and normal S2; no murmur Vessels: posterior tibial pulses present and dorsalis pedis pulses present; no JVD Extremities: no edema Gastrointestinal (Abdomen): normal bowel sounds, soft, nontender, no hepatosplenomegaly Skin: no rashes, warm and dry Psychiatric: Orientation: alert and oriented x 3 Results & Data Results & Data ([facility]) Vital Signs (Past 12 Hours) Vital Signs Temp Pulse Resp BP Pulse Ox 07/30/20 16:17 36.7 C 71 18 132/79 90 07/30/20 14:45 81 18 92 07/30/20 11:46 82 21 92 07/30/20 07:50 36.5 C 78 16 120/64 91 07/30/20 07:29 74 18 90 Laboratory Results Laboratory Results - last 24 hr 07/30/20 07/30/20 07/30/20 07:13 07:13 07:13 WBC 8.44 RBC 5.10 Hgb 15.3 Hct 43.2 MCV 84.7 MCH 30.0 MCHC 35.4 RDW Std Deviation 40.3 RDW Coeff of Aleksander 12.9 Plt Count 299 MPV 10.4 Immature Gran % (Auto) 0.1 Neut % (Auto) 82.7 Lymph % (Auto) 9.6 [place] % (Auto) 7.5 Eos % (Auto) 0.0 Baso % (Auto) 0.1 Neut # (Auto) 6.98 H Lymph # (Auto) 0.81 L [place] # (Auto) 0.63 H Eos # (Auto) 0.00 Baso # (Auto) 0.01 Immature Gran # (Auto) 0.01 D-Dimer 610 H* Sodium 137 Potassium 3.9 Chloride 104 Carbon Dioxide 28 Anion Gap 6.0 BUN 17 Creatinine 0.90 Est Cr Clr Drug Dosing 98.0 Est GFR ( Amer) 112.6 Est GFR (Non-Af Amer) 97.2 BUN/Creatinine Ratio 19.3 Glucose 152 H Calcium 8.6 AST 24 ALT 38 Procalcitonin Stl C. diff Tox B Gene 07/30/20 07/30/20 07:13 16:42 WBC RBC Hgb Hct MCV MCH MCHC RDW Std Deviation RDW Coeff of Aleksander Plt Count MPV Immature Gran % (Auto) Neut % (Auto) Lymph % (Auto) [place] % (Auto) Eos % (Auto) Baso % (Auto) Neut # (Auto) Lymph # (Auto) [place] # (Auto) Eos # (Auto) Baso # (Auto) Immature Gran # (Auto) D-Dimer Sodium Potassium Chloride Carbon Dioxide Anion Gap BUN Creatinine Est Cr Clr Drug Dosing Est GFR ( Amer) Est GFR (Non-Af Amer) BUN/Creatinine Ratio Glucose Calcium AST ALT Procalcitonin 0.18 Stl C. diff Tox B Gene Negative Cdiff Gene PG Care Time/CCT Total # of Minutes Spent Total Time Spent with Patient: Total time spent is greater than 50% in coordination of care (as documented) at patient's floor/unit and/or counseling patient: Coding Level of Care Code 62345 Subseq Hosp Care Lvl 2 Diagnoses Pneumonia due to COVID-19 virus U07.1; J12.82 Asthma J45.909 Asthma complication type: unspecified Asthma persistence: unspecified Asthma severity: unspecified severity Acute respiratory failure with hypoxia J96.01 D-dimer, elevated R79.89 Restless legs G25.81 Insomnia G47.00 Diarrhea R19.7 Anxiety F41.9 DVT prophylaxis Z29.9 (1) Asthma Asthma complication type: unspecified Asthma persistence: unspecified Asthma severity: unspecified severity Qualified Code(s): J45.909 - Unspecified asthma, uncomplicated
[2020-07-30] MEDS: LOPERAMIDE HCL 2 MG CAP PO PRN (19:39)
[2020-07-30] MEDS: REMDESIVIR 100 MG in SODIUM CHLORIDE 0.9% 230 ML IV SCH (21:18)
[2020-07-30] MEDS: PRAMIPEXOLE DIHYDROCHLO 0.5 MG TAB PO SCH (21:19)
[2020-07-30] MEDS: MELATONIN 3 MG TAB PO PRN (21:19)
[2020-07-30] MEDS: SODIUM CHLORIDE 0.9% 10ML FLUSH IV SCH (22:17)
[2020-07-31] MEDS: cefTRIAXone SODIUM 2,000 MG in DEXTROSE 5% 50 ML IV SCH (05:36)
[2020-07-31] MEDS: ALBUTEROL HFA 8 GM INHALER INH SCH ×4 (07:17→19:42)
[2020-07-31 07:54] LABS: Ferritin 530.8 ng/ml (8-388)
[2020-07-31] MEDS: dexAMETHasone 6 MG in SYRINGE 0 ML IV SCH (09:41)
[2020-07-31] MEDS: ENOXAPARIN INJ 40 MG/0.4 ML SYR SQ SCH ×2 (09:42→20:21)
[2020-07-31] MEDS: ASPIRIN 81 MG ECTAB PO SCH (09:43)
[2020-07-31] MEDS: AZITHROMYCIN 250 MG in DEXTROSE 5% 250 ML IV SCH (09:43)
[2020-07-31] MEDS: CETIRIZINE HCL 10 MG TABLET PO SCH (09:44)
[2020-07-31] MEDS: guaiFENesin 600 MG TABCR PO SCH ×2 (09:44→20:21)
[2020-07-31] MEDS: FAMOTIDINE 20 MG TAB PO SCH ×2 (09:44→20:21)
[2020-07-31] MEDS: DICLOFENAC SOD 1% GEL 100 GM TUBE EXT SCH ×4 (09:45→20:39)
[2020-07-31] MEDS: ADVANCED PROBIOTIC 1250 MG CAPSULE PO SCH (09:45)
[2020-07-31] MEDS ORDERED: busPIRone 7.5 MG TAB PO PRN (17:41)
[2020-07-31] MEDS ORDERED: TEMAZEPAM 7.5 MG CAPSULE PO ONE (20:34)
[2020-07-31] MEDS: TEMAZEPAM 7.5 MG CAPSULE PO SCH (20:38)
[2020-07-31] MEDS: LOPERAMIDE HCL 2 MG CAP PO PRN (20:38)
[2020-07-31] MEDS: PRAMIPEXOLE DIHYDROCHLO 0.5 MG TAB PO SCH (20:39)
--- NOTE | 2020-08-01 01:21 | Hospitalist Progress Note ---
Date of Service July 31, 2020 Assessment & Plan (1) Pneumonia due to COVID-19 virus: Severe disease at admission with resulting acute hypoxic resp failure -- but improving nicely and making great progress this weekend. Day #6 of 10 of IV decadron today. d/c IV steroids, wean back to 6mg once daily, and make oral. Starting tomorrow will need 4 more days. Completed 5-day course of remdesivir. Convalescent plasma deferred at admission (he was about 10 days into his illness at time of admission). AST/ALT remain normal following remdesivir course. Continue Proning. He has been very diligent about such. Continue Flutter valve; continue incentive. Again very compliant with such. Mucinex. Albuterol qid scheduled. Wean FiO2 if sats 90% or greater. CTA w/o PE at admission. STOP IV rocephin STOP IV zithromax Change to PO levaquin 750mg daily x 3 days starting tomorrow (2) Asthma: with mild exacerbation. cont steroids but wean from BID to qdaily dosing (see above). Cont albuterol qid scheduled. Pulmonary toilet. (3) Acute respiratory failure with hypoxia: 2nd COVID-19 pneumonia. 2nd to asthma w/ flare. resolving/improving. wean NC O2 support. See above. (4) D-dimer, elevated: 2nd COVID-19. No PE on CTA chest at admission. repeat dimer yesterday 610 - minimally elevated & trending down. (5) Restless legs: Cont mirapex 0.5mg at HS. Checked Fe studies to look for deficiency - opposite found - see below. (6) Insomnia: Multifactorial. d/c melatonin. not helping temazepam 7.5mg HS; repeat 7.5mg for total of 15mg if needed. (7) Diarrhea: c diff ordered and negative loperamide prn improved likely due to COVID itself and antibiotic-associated diarrhea (8) Anxiety: increase buspar to 7.5mg tid prn (9) Abnormal result of iron profile testing: transferrin saturation markedly elevated to 65% ferritin also high uncertain if these values are off due to inflammation from COVID recommend recheck of iron studies in 4-6weeks if still high - then refer to hematology and/or GI patient w/o family history of hemachromatosis does not take Fe supplements does not drink rich, heavy beer (10) DVT prophylaxis: Due to higher risk of VTE cont lovenox 40mg BID. Also continue low-dose asa 81mg daily as recent studies show decrease in COVID complications by using such. updated extensively by phone yesterday and today once again. Im very pleased by his progress! Admission and Anticipated Discharge Date Admission Date: July 27, 2020 Subjective just before going to see him I was contacted by respiratory they successfully weaned him to 3 L NC O2 today during my rounds he was up out of bed, walking in room, with no dyspnea sats on monitor stayed mid 90s despite the walking he reported feeling "real good" cough improved still liquid stools but the loperamide helped great appetite no pains still not sleeping despite melatonin, mirapex, etc took buspar for anxiety - helped a little, feels the dose needs to be higher he is really encouraged by his progress still proning and using flutter, etc Review of Systems Constitutional: + fatigue; no fever, no chills, no body aches, no malaise and no anorexia Ear, Nose, Mouth, Throat: no loss of taste or smell Respiratory: + cough and + dyspnea on exertion; no sputum production and no wheezing Cardiovascular: no chest pain, no orthopnea and no edema Gastrointestinal: no abdominal pain, no nausea and no vomiting Musculoskeletal: no body aches Neurologic: no dizziness Physical Exam Constitutional: no acute distress and no altered mental status looks great today ENMT: external ear and nose normal, oropharynx normal Respiratory: no respiratory distress wheezes & rales resolved; really good airation today including at the bases Cardiovascular: Rate/Rhythm: regular rate and regular rhythm Heart Sounds: normal S1 and normal S2; no murmur Vessels: posterior tibial pulses present and dorsalis pedis pulses present; no JVD Extremities: no edema Gastrointestinal (Abdomen): normal bowel sounds, soft, nontender, no hepatosplenomegaly Skin: no rashes, warm and dry Psychiatric: Orientation: alert and oriented x 3 Affect: + anxious affect and + tearful affect Results & Data Results & Data ([facility]) Vital Signs (Past 12 Hours) Vital Signs Temp Pulse Resp BP BP Pulse Ox 07/31/20 20:40 36.6 C 65 16 120/75 92 07/31/20 19:44 63 20 95 07/31/20 17:00 36.7 C 65 16 127/78 92 07/31/20 15:33 65 17 Laboratory Results Laboratory Results - last 24 hr 07/31/20 07:08 Iron 162 Transferrin 177 L Transferrin % Sat 65 H Ferritin 530.8 H AST 18 ALT 40 sputum cx negative to date PG Care Time/CCT Total # of Minutes Spent Total Time Spent with Patient: Total time spent is greater than 50% in coordination of care (as documented) at patient's floor/unit and/or counseling patient: Coding Level of Care Code 08308 Subseq Hosp Care Lvl 3 Diagnoses Pneumonia due to COVID-19 virus U07.1; J12.82 Asthma J45.909 Asthma severity: unspecified severity Asthma persistence: unspecified Asthma complication type: unspecified Acute respiratory failure with hypoxia J96.01 D-dimer, elevated R79.89 Restless legs G25.81 Insomnia G47.00 Diarrhea R19.7 Anxiety F41.9 Abnormal result of iron profile testing R79.0 DVT prophylaxis Z29.9 (1) Asthma Asthma severity: unspecified severity Asthma persistence: unspecified Asthma complication type: unspecified Qualified Code(s): J45.909 - Unspecified asthma, uncomplicated
[2020-08-01] MEDS: ALBUTEROL HFA 8 GM INHALER INH SCH ×4 (07:34→20:18)
[2020-08-01 07:36] LABS: Hemoglobin 15.5 g/dL (14.0-18.0); Mean Corpuscular Hemoglobin 29.9 pg (25-34); Mean Corpuscular Hgb Conc 35.2 g/dL (32-36); Mean Corpuscular Volume 84.9 fL (80-100); Mean Platelet Volume 10.3 fL (7.4-10.4); Platelet Count 370 K/uL (130-400); RDW Coefficient of Variation 12.9 % (11.5-14.5); RDW Standard Deviation 40.5 fL (36.4-46.3); Red Blood Count 5.18 M/uL (4.7-6.1); White Blood Count 11.62 K/uL (4.8-10.8)
[2020-08-01 08:08] LABS: Calcium 8.6 mg/dl (8.5-10.1); Creatinine Clr Calc Pharmacy 88.2 ml/min; Est GFR (African American) 99.2; Est GFR (Non-African American) 85.5; Potassium 3.6 mmol/L (3.5-5.1)
[2020-08-01] MEDS: dexAMETHasone 4 MG TAB PO SCH (08:38)
[2020-08-01] MEDS: ENOXAPARIN INJ 40 MG/0.4 ML SYR SQ SCH ×2 (08:38→20:07)
[2020-08-01] MEDS: FAMOTIDINE 20 MG TAB PO SCH ×2 (08:39→20:07)
[2020-08-01] MEDS: ASPIRIN 81 MG ECTAB PO SCH (08:39)
[2020-08-01] MEDS: CETIRIZINE HCL 10 MG TABLET PO SCH (08:39)
[2020-08-01] MEDS: ADVANCED PROBIOTIC 1250 MG CAPSULE PO SCH (08:39)
[2020-08-01] MEDS: guaiFENesin 600 MG TABCR PO SCH ×2 (08:39→20:13)
[2020-08-01] MEDS: DICLOFENAC SOD 1% GEL 100 GM TUBE EXT SCH ×4 (08:39→20:09)
[2020-08-01] MEDS ORDERED: dexAMETHasone 4 MG TAB PO SCH (09:00)
[2020-08-01] MEDS: levoFLOXacin 750 MG TAB PO SCH (11:50)
--- NOTE | 2020-08-01 13:21 | Hospitalist Progress Note ---
Date of Service August 01, 2020 Assessment & Plan (1) Pneumonia due to COVID-19 virus: Severe disease at admission with resulting acute hypoxic resp failure -- a lot better the past few days Day #7 of 10 of dexamethasone, on PO steroids now, complete the course at home Completed 5-day course of remdesivir. Convalescent plasma deferred at admission (he was about 10 days into his illness at time of admission). AST/ALT remain normal following remdesivir course. Continue Proning. He has been very diligent about such. Continue Flutter valve; continue incentive. Again very compliant with such. Mucinex. Albuterol qid scheduled. CTA w/o PE at admission. Change to PO levaquin 750mg daily x 3 days starting today, needs two more days down to room air today, no distress plan for two step tomorrow morning and will d/c to home in the morning (2) Asthma: with mild exacerbation at first cont steroids for three more days Cont albuterol qid scheduled. Pulmonary toilet. no wheezing or distress on exam today (3) Acute respiratory failure with hypoxia: 2nd COVID-19 pneumonia. 2nd to asthma w/ flare. nearly resolved, 92% on room air at this time will get two step tomorrow to assess for oxygen needs on exertion (4) D-dimer, elevated: 2nd COVID-19. No PE on CTA chest at admission. (5) Restless legs: Cont mirapex 0.5mg at HS (not helping) Checked Fe studies to look for deficiency (6) Insomnia: Multifactorial. d/c melatonin. not helping temazepam 7.5mg HS; repeat 7.5mg for total of 15mg if needed. (7) Diarrhea: c diff ordered and negative loperamide prn improved likely due to COVID itself and antibiotic-associated diarrhea (8) Anxiety: increased buspar to 7.5mg tid prn (9) Abnormal result of iron profile testing: transferrin saturation markedly elevated to 65% ferritin also high uncertain if these values are off due to inflammation from COVID recommend recheck of iron studies in 4-6weeks if still high - then refer to hematology and/or GI patient w/o family history of hemachromatosis does not take Fe supplements does not drink rich, heavy beer (10) DVT prophylaxis: Due to higher risk of VTE cont lovenox 40mg BID. Also continue low-dose asa 81mg daily as recent studies show decrease in COVID complications by using such. Admission and Anticipated Discharge Date Admission Date: July 27, 2020 Subjective patient feeling great, breathing well, he has been off oxygen since this morning currently 92% on room air he says he is not sleeping well, all due to restless legs he says this has never kept him up before, the sleeping medications are not helping at all reviewed chart, reviewed labs discussed that he can go home tomorrow morning after two step, he is very pleased about this he is eating great, stools still a little on the loose side, making a lot of urine Review of Systems Review of Systems: All systems reviewed & are unremarkable except as noted in Subjective Physical Exam Constitutional: WD/WN, vitals as above Neck: trachea midline, no thyromegaly Respiratory: normal respiratory effort, lungs clear to auscultation Cardiovascular: RRR, no murmur, no edema Gastrointestinal (Abdomen): normal bowel sounds, soft, nontender, no hepatosplenomegaly Musculoskeletal: no cyanosis or clubbing, extremities motor strength 5/5 Skin: no rashes, warm and dry Neurologic: patellar DTR's 2+ bilat, sensation intact and PERRL, EOMI, accommodation nl, no face palsy, no dysarthria Psychiatric: A+Ox3, euthymic affect Lymphatic: no cervical or axillary lymphadenopathy Results & Data Results & Data ([facility]) Vital Signs (Past 12 Hours) Vital Signs Pulse Resp BP Pulse Ox 08/01/20 11:55 90 08/01/20 11:37 76 16 97 08/01/20 11:35 95 08/01/20 08:45 78 18 102/69 92 08/01/20 07:35 69 16 92 Laboratory Results Laboratory Results - last 24 hr 08/01/20 08/01/20 07:07 07:07 WBC 11.62 H RBC 5.18 Hgb 15.5 Hct 44.0 MCV 84.9 MCH 29.9 MCHC 35.2 RDW Std Deviation 40.5 RDW Coeff of Aleksander 12.9 Plt Count 370 MPV 10.3 Sodium 138 Potassium 3.6 Chloride 104 Carbon Dioxide 27 Anion Gap 7.0 BUN 18 Creatinine 1.00 Est Cr Clr Drug Dosing 88.2 Est GFR ( Amer) 99.2 Est GFR (Non-Af Amer) 85.5 BUN/Creatinine Ratio 18.0 Glucose 104 H Calcium 8.6 Medications Administered Current Inpatient Medications Acetaminophen (Acetaminophen 325 Mg Tab) 650 mg PO Q4H PRN PRN Reason: Pain or Fever Stop: 08/26/20 02:09 Albuterol (Albuterol Hfa 8 Gm Inhaler) 2 puffs INH Q4H PRN PRN Reason: shortness of breath or wheezin Stop: 08/26/20 02:09 Last Admin: 07/29/20 04:48 Dose: 2 puffs Documented by: Albuterol (Albuterol Hfa 8 Gm Inhaler) 2 puffs INH QIDR [facility] Stop: 08/28/20 06:59 Last Admin: 08/01/20 11:37 Dose: 2 puffs Documented by: Aspirin (Aspirin 81 Mg Ectab) 81 mg PO QAM [facility] Stop: 08/26/20 14:14 Last Admin: 08/01/20 08:39 Dose: 81 mg Documented by: Buspirone HCl (Buspirone 7.5 Mg Tab) 7.5 mg PO TID PRN PRN Reason: Anxiety Stop: 08/29/20 20:59 Cetirizine HCl (Cetirizine Hcl 10 Mg Tablet) 10 mg PO DAILY [facility] Stop: 08/26/20 08:59 Last Admin: 08/01/20 08:39 Dose: 10 mg Documented by: Dexamethasone (Dexamethasone 4 Mg Tab) 6 mg PO QAM [facility] Stop: 08/31/20 08:59 Last Admin: 08/01/20 08:38 Dose: 6 mg Documented by: Diclofenac Sodium (Diclofenac Sod 1% Gel 100 Gm Tube) 4 gm EXT QID [facility] Stop: 08/28/20 16:59 Last Admin: 08/01/20 12:56 Dose: Not Given Documented by: Enoxaparin Sodium (Enoxaparin Inj 40 Mg/0.4 Ml Syr) 40 mg SQ Q12H [facility] Stop: 08/26/20 07:59 Last Admin: 08/01/20 08:38 Dose: 40 mg Documented by: Famotidine (Famotidine 20 Mg Tab) 20 mg PO BID [facility] Stop: 08/27/20 20:59 Last Admin: 08/01/20 08:39 Dose: 20 mg Documented by: Guaifenesin (Guaifenesin Sugar Free 100 Mg/5 Ml Udc) 100 mg PO Q6H PRN PRN Reason: Cough Stop: 08/26/20 02:09 Guaifenesin (Guaifenesin 600 Mg Tabcr) 1,200 mg PO Q12 [facility] Stop: 08/27/20 20:59 Last Admin: 08/01/20 08:39 Dose: 1,200 mg Documented by: Lactobacillus Acidoph/Casei/Rhamnos (Advanced Probiotic 1250 Mg Capsule) 2 cap PO DAILY [facility] Stop: 08/29/20 15:29 Last Admin: 08/01/20 08:39 Dose: 2 cap Documented by: Levofloxacin (Levofloxacin 750 Mg Tab) 750 mg PO DAILY@1100 [facility]; Protocol Stop: 08/03/20 11:01 Last Admin: 08/01/20 11:50 Dose: 750 mg Documented by: Loperamide HCl (Loperamide Hcl 2 Mg Cap) 2 mg PO Q3H PRN PRN Reason: Diarrhea Stop: 08/29/20 18:21 Last Admin: 07/31/20 20:38 Dose: 2 mg Documented by: Melatonin (Melatonin 3 Mg Tab) 6 mg PO HS PRN PRN Reason: Sleep Stop: 08/28/20 19:05 Last Admin: 07/30/20 21:19 Dose: 6 mg Documented by: Ondansetron HCl (Ondansetron Inj 2 Mg/Ml 2 Ml Vial) 4 mg IV Q6H PRN PRN Reason: Nausea Stop: 08/26/20 02:09 Pramipexole Dihydrochloride (Pramipexole Dihydrochlo 0.5 Mg Tab) 0.5 mg PO HS [facility] Stop: 08/28/20 20:59 Last Admin: 07/31/20 20:39 Dose: 0.5 mg Documented by: Temazepam (Temazepam 7.5 Mg Capsule) 7.5 mg PO HSZ [facility] Stop: 08/30/20 21:59 Last Admin: 07/31/20 20:38 Dose: 7.5 mg Documented by: PG Care Time/CCT Total # of Minutes Spent Total Time Spent with Patient: Total time spent is greater than 50% in coordination of care (as documented) at patient's floor/unit and/or counseling patient: Coding Level of Care Code 48210 Subseq Hosp Care Lvl 2 Diagnoses Pneumonia due to COVID-19 virus U07.1; J12.82 Asthma J45.909 Asthma severity: unspecified severity Asthma persistence: unspecified Asthma complication type: unspecified Acute respiratory failure with hypoxia J96.01 D-dimer, elevated R79.89 Restless legs G25.81 Insomnia G47.00 Diarrhea R19.7 Anxiety F41.9 Abnormal result of iron profile testing R79.0 DVT prophylaxis Z29.9 (1) Asthma Asthma severity: unspecified severity Asthma persistence: unspecified Asthma complication type: unspecified Qualified Code(s): J45.909 - Unspecified asthma, uncomplicated
[2020-08-01] MEDS: TEMAZEPAM 7.5 MG CAPSULE PO SCH (20:07)
[2020-08-01] MEDS: PRAMIPEXOLE DIHYDROCHLO 0.5 MG TAB PO SCH (20:08)
[2020-08-01] MEDS: MELATONIN 3 MG TAB PO PRN (20:08)
[2020-08-02] MEDS: ALBUTEROL HFA 8 GM INHALER INH SCH ×2 (07:24→10:35)
[2020-08-02 08:53] LABS: Creatinine Clr Calc Pharmacy 84.8 ml/min; Est GFR (African American) 94.6; Est GFR (Non-African American) 81.6
--- NOTE | 2020-08-02 08:58 | Discharge Summary ---
Date of Service August 02, 2020 Admission HPI Per Admitting Provider Sy Kelly is a 55yo male presenting with Covid-19 pneumonia. Patient developed symptoms of fever, chills, body aches and weakness on 07/17/20. He tested positive for Covid-19 on 07/18/20. Since then he has been persistently febrile with weakness, body aches, as well as diarrhea. He was seen in the ER yesterday with complaint of worsening dyspnea and weakness and poor appetite. He was discharged home with Prednisone 40mg x 5 days. Patient states that he was using his incentive spirometry earlier today when he developed high fever, muscle aches and rigors. This prompted him to come to the ER. He is still with SOB both at rest and with minimal exertion, dry cough, body aches and weakness. Febrile on arrival, saturation of 92% on room air - presently 93% on 2L NC. Saturations dropped to 86% with ambulation to the restroom. ER Course: Tylenol, Albuterol, Dexamethasone, Guaifenesin, Ketorlac, NSS x 2 L Principal Diagnosis COVID 19 pneumonia, hypoxemia Discharge Exam Constitutional WD/WN, vitals as above Neck trachea midline, no thyromegaly Respiratory normal respiratory effort, lungs clear to auscultation Cardiovascular RRR, no murmur, no edema Gastrointestinal (Abdomen) normal bowel sounds, soft, nontender, no hepatosplenomegaly Musculoskeletal no cyanosis or clubbing, extremities motor strength 5/5 Skin no rashes, warm and dry Neurologic patellar DTR's 2+ bilat, sensation intact and PERRL, EOMI, accommodation nl, no face palsy, no dysarthria Psychiatric A+Ox3, euthymic affect Lymphatic no cervical or axillary lymphadenopathy Discharge Data Allergies Allergy/AdvReac Type Severity Reaction Status Date / Time Tetanus Vaccines and Toxoid Allergy Intermediate Hives Verified 07/26/20 22:47 Consultations 07/27/20 00:25 ED Decision to Admit Stat Ordered Studies 07/26/20 23:03 CT angio chest PE protocol Urgent Hospital Course (1) Pneumonia due to COVID-19 virus: Severe disease at admission with resulting acute hypoxic resp failure -- a lot better the past few days Day #8 of 10 of dexamethasone, on PO steroids now, complete two more days at home Completed 5-day course of remdesivir. CTA w/o PE at admission. Change to PO levaquin 750mg daily, needs one more day at home down to room air for two days, two step done today, no oxygen needed at rest and on exertion d/c to home, no need for isolation (2) Asthma: with mild exacerbation at first cont steroids for two more days Cont albuterol qid PRN Pulmonary toilet. no wheezing or distress on exam today (3) Acute respiratory failure with hypoxia: 2nd COVID-19 pneumonia. 2nd to asthma w/ flare. resolved, see above (4) D-dimer, elevated: 2nd COVID-19. No PE on CTA chest at admission. (5) Restless legs: Cont mirapex 0.5mg at HS Checked Fe studies -- no deficiency hopeful that symptoms will improve after steroids completed follow up with PCP (6) Insomnia: Multifactorial. (7) Diarrhea: c diff ordered and negative loperamide prn improved likely due to COVID itself and antibiotic-associated diarrhea (8) Anxiety: better (9) Abnormal result of iron profile testing: transferrin saturation markedly elevated to 65% ferritin also high likely that these values are due to inflammation from COVID recommend recheck of iron studies in 4-6weeks if still high - then refer to hematology and/or GI patient w/o family history of hemachromatosis does not take Fe supplements does not drink rich, heavy beer (10) DVT prophylaxis: Due to higher risk of VTE cont lovenox 40mg BID. Also continue low-dose asa 81mg daily as recent studies show decrease in COVID complications by using such. Total Time Total Time Spent Total Time Spent (In Minutes): 32 minutes Total Time Includes: Examination of the Patient, Discharge Planning and Medication Reconciliation Discharge Plan Discharge Items Patient Disposition: Home - Self-Care Reason For Visit: COVID-19 PNA Discharge Diagnosis: COVID 19 pneumonia Acute hypoxic respiratory failure Condition on Discharge: Good Goals: complete course of dexamethasone stay well nourished, well hydrated Activity: Resume your previous activity Non-emergency contact: Primary Care Provider Call non-emergency contact if: you have any medication questions Follow-up/Referrals: Oralia Mukherjee MD [Primary Care Provider] - 08/08/20 1:30 pm (one week) Diet: Regular Addtl Attending Provider Instructions: Medications: - DEXAMETHASONE: 6mg daily for two more days, next dose due tomorrow - LEVOFLOXACIN: 750mg tablet, one more dose due tomorrow - ASPIRIN: 81mg a day, studies have shown improved outcomes with COVID if you take a baby aspirin for the next month - PRAMIPEXOLE: continue to take 0.5mg at bedtime for restless leg syndrome COVID 19 pneumonia, acute hypoxic respiratory failure responded well to dexamethasone and course of antibiotics down to room air today complete the dexamethasone and levofloxacin as above continue on aspirin 81mg daily for the next 30 days no need to be quarantined/isolated further Elevated ferritin (iron storage marker) this can go up with inflammation such as COVID 19 infection recommend repeating ferritin, iron, TIBC, transferrin in 4 weeks with PCP, they can order this test and follow up results Restless legs: continue on Pramipexole 0.5mg HS only two more days of steroids needed, hopeful that you will sleep better after they are complete follow up with PCP if you are still having trouble sleeping Completion of work form, please contact Ling Tellez, Hospitalist coordinator, at [phone] she will give you her fax number and we will complete the form Pending Studies at Discharge: No Stand-Alone Forms: My [facility], Work/School Release (Inpt), Smoking Cessation Medications and DC Order Prescriptions: New aspirin 81 mg Tablet,Delayed Release (Dr/Ec) 81 mg PO QAM 30 Days Qty: 30 RF: 0 pramipexole 0.5 mg Tablet 0.5 mg PO HS 30 Days Qty: 30 RF: 1 dexamethasone 4 mg Tablet 6 mg PO QAM 2 Days Qty: 3 RF: 0 levofloxacin 750 mg Tablet 750 mg PO DAILY@1100 1 Days Qty: 1 RF: 0 Continued Respiratory Health 600 mg tablet 600 mg PO DAILY RF: 0 cetirizine [Zyrtec] 10 mg tablet 10 mg PO DAILY RF: 0 albuterol sulfate [Ventolin HFA] 90 mcg/actuation HFA aerosol inhaler 2 puffs INH Q6H PRN (Reason: shortness of breath or wheezing) RF: 0 Collagen Plus Vitamin C 125-740 mg Capsule 1 cap PO DAILY RF: 0 [id number] [krill oil] 1,585-646-24-80 mg Capsule 1 cap PO DAILY RF: 0 zolpidem 10 mg tablet 10 mg PO HS PRN (Reason: Sleep) RF: 0 Discontinued prednisone 20 mg tablet 40 mg PO DAILY 5 Days Qty: 10 RF: 0 doxycycline hyclate 100 mg tablet 100 mg PO BID RF: 0 Discharge Orders: Discharge Order (Routine); Ordered 08/02/20 Ordered By: He Romero/Other Patient Handouts: Proning COVID-19 Admission Data Admit Date/Time: 07/27/20 01:04 Attending Provider: He Perkins Admit Provider: Ayla Morin Primary Care Provider: Oralia Mukherjee Other Providers: Ayla Morin Other Interventions: Discharge Summary Assessment (RN) Last Done: 08/02/20 07:40 Coding Level of Care Code D/C Day Management >30 mins Diagnoses Pneumonia due to COVID-19 virus U07.1; J12.82 Asthma J45.909 Asthma severity: unspecified severity Asthma persistence: unspecified Asthma complication type: unspecified Acute respiratory failure with hypoxia J96.01 D-dimer, elevated R79.89 Restless legs G25.81 Insomnia G47.00 Diarrhea R19.7 Anxiety F41.9 Abnormal result of iron profile testing R79.0 DVT prophylaxis Z29.9
[2020-08-02 09:13] LABS: Hematocrit (blood only) 44.8 % (42-52); Hemoglobin 15.8 g/dL (14.0-18.0); Mean Corpuscular Hemoglobin 29.9 pg (25-34); Mean Corpuscular Hgb Conc 35.3 g/dL (32-36); Mean Corpuscular Volume 84.8 fL (80-100); Mean Platelet Volume 10.3 fL (7.4-10.4); Platelet Count 358 K/uL (130-400); RDW Coefficient of Variation 12.7 % (11.5-14.5); RDW Standard Deviation 39.3 fL (36.4-46.3); Red Blood Count 5.28 M/uL (4.7-6.1); White Blood Count 10.46 K/uL (4.8-10.8)
[2020-08-02] MEDS: FAMOTIDINE 20 MG TAB PO SCH (09:33)
[2020-08-02] MEDS: ASPIRIN 81 MG ECTAB PO SCH (09:33)
[2020-08-02] MEDS: DICLOFENAC SOD 1% GEL 100 GM TUBE EXT SCH (09:33)
[2020-08-02] MEDS: ADVANCED PROBIOTIC 1250 MG CAPSULE PO SCH (09:34)
[2020-08-02] MEDS: CETIRIZINE HCL 10 MG TABLET PO SCH (09:35)
[2020-08-02] MEDS: ENOXAPARIN INJ 40 MG/0.4 ML SYR SQ SCH (09:35)
[2020-08-02] MEDS: guaiFENesin 600 MG TABCR PO SCH (09:35)
[2020-08-02] MEDS: dexAMETHasone 4 MG TAB PO SCH (09:36)
[2020-08-02] MEDS: levoFLOXacin 750 MG TAB PO SCH (10:49)
== END 2020-08-02 11:00 | disposition home or self-care (01) | DRG 177 ==
LOC: ED 20:40 → 3W 07-27 01:04 → SUATTDRO 07-27 01:04 → 3W 07-27 01:41